=== PATIENT | female | born 1965 | race Caucasian/White ===

== ENCOUNTER 2017-08-13 07:18 | Day surgery (SDC) | payer BC ==
[~2017-08-13 07:18] MED LIST: TETRACAINE 0.5% OPHTH 1 DOSE AFFEYE ONE; VIGAMOX 0.5% OPHTH 1 DOSE AFFEYE ONE
[2017-08-13] MEDS ORDERED: VIGAMOX 0.5% OPHTH 1 DOSE AFFEYE ONE ×5 (07:21→10:18)
[2017-08-13] MEDS ORDERED: PROLENSA OPHTH 1 DOSE AFFEYE ONE (07:31)
[2017-08-13] MEDS ORDERED: ALPHAGAN-P OPHTH 1 DOSE AFFEYE ONE (07:32)
[2017-08-13] MEDS ORDERED: CYCLOGYL 1% OPHTH 1 DOSE OP ONE ×3 (07:33→07:39)
[2017-08-13] MEDS ORDERED: MYDRIACIL OPHTH 1 DOSE AFFEYE ONE ×3 (07:33→07:39)
[2017-08-13] MEDS ORDERED: AK-DILATE 2.5% OPHTH 1 DOSE OP ONE ×3 (07:33→07:39)
[2017-08-13] MEDS ORDERED: NS 500 ML IV 500 ML IV ONE (07:45)
[2017-08-13] MEDS ORDERED: TETRACAINE 0.5% OPHTH 1 DOSE AFFEYE ONE ×2 (09:50→09:54)
[2017-08-13] MEDS ORDERED: BETADINE OPHTH SOLN 5% EACHEYE ONE (09:50)
[2017-08-13] MEDS ORDERED: XYLOCAINE-MPF 1% IJ ONE (09:54)
[2017-08-13] MEDS ORDERED: ADRENALINE CHL INJ IJ ONE (09:54)
[2017-08-13] MEDS ORDERED: DUOVISC IO ONE (09:54)
[2017-08-13] MEDS ORDERED: BSS OPHTH (PLAIN) 500 ML with VANCOMYCIN HCL 500 MG VIAL 25 MG, ADRENALINE CHL INJ 1 MG IR ONE ×3 (09:55)
[2017-08-13 10:41] VITALS: BP 159/74
[2017-08-13] MEDS ORDERED: VERSED ONE (15:45)
[2017-08-13] MEDS ORDERED: DIPRIVAN VIAL ONE (15:45)
== END 2017-08-13 10:40 | disposition home or self-care (01) ==
LOC: SURG1 07:18
PROVIDERS: ATTEND Ophthalmology
PROC: 08RJ3JZ Replacement of Right Lens with Synthetic Substitute, Percutaneous Approach (ICD-10-PCS; principal; 2017-08-13 10:30)
PROC: 08DJ3ZZ Extraction of Right Lens, Percutaneous Approach (ICD-10-PCS; principal; 2017-08-13 10:30)
DX: H25.21 Age-related cataract, morgagnian type, right eye (principal)
CPT/HCPCS: A4217; J0170; J2250; J3370; J3490